=== PATIENT | male | born 1935 | race Caucasian/White ===

== ENCOUNTER 2018-01-19 11:10 | Day surgery (SDC) | payer MEDICARE, BC ==
[~2018-01-19] VITALS: Ht 188 cm; Wt 99.8 kg
[2018-01-19] MEDS ORDERED: normal saline 1000ml 1,000 ML IV SCH (11:45)
[2018-01-19] MEDS ORDERED: albumin (human) 25% 100ml IV 100 ML IV ONE (11:45)
[2018-01-19 11:46] VITALS: BP 120/75
[2018-01-19] MEDS ORDERED: FOLI0.8T7 PO (12:03)
[2018-01-19] MEDS ORDERED: LORA1TAB PO (12:03)
[2018-01-19] MEDS ORDERED: INSU100C10 SQ (12:03)
[2018-01-19] MEDS ORDERED: INSU100V9 SQ (12:03)
[2018-01-19] MEDS ORDERED: PHO667C PO (12:03)
[2018-01-19] MEDS ORDERED: PREG150C PO (12:03)
[2018-01-19] MEDS ORDERED: FLO0.4C PO (12:03)
[2018-01-19] MEDS ORDERED: SIMV20TA5 PO (12:03)
[2018-01-19] MEDS ORDERED: dextrose 50%-water 50ml dispensing syringe IV PRN (12:05)
[2018-01-19] MEDS ORDERED: fentaNYL/PF 50MCG/1 ML 2ML syringe IV PRN (13:00)
[2018-01-19] MEDS ORDERED: midazolam 2 mg/2 ml injection IV PRN (13:00)
[2018-01-19] MEDS ORDERED: LIDOcaine 1%/PF 5ML 10 MG/ML VIAL SQ ONE (13:00)
[2018-01-19] MEDS ORDERED: LIDOcaine 1%/PF 5ML 10 MG/ML VIAL ONE (13:19)
[2018-01-19] MEDS ORDERED: iohexol 300mg/ml 100ml inj. ONE (13:19)
[2018-01-19] MEDS ORDERED: midazolam 2 mg/2 ml injection ONE (13:22)
[2018-01-19] MEDS ORDERED: fentaNYL/PF 50MCG/1 ML 2ML syringe ONE (13:23)
[2018-01-19] MEDS ORDERED: heparin 1,000 UNITS/NS 500ml 500 ML ONE (13:31)
[2018-01-19 13:46] LABS: BASOPHILS # (AUTO) 0.1 X10'3 (0-0.2); EOSINOPHILS # (AUTO) 0.5 X10'3 (0-0.9); EOSINOPHILS % (AUTO) 5.7 % (0-6); HEMATOCRIT 37.4 % (42.0-52.0); HEMOGLOBIN 12.4 g/dl (14.0-17.9); LYMPHOCYTES # (AUTO) 1.8 X10'3 (1.1-4.8); LYMPHOCYTES % (AUTO) 19.5 % (21-51); MEAN CORPUSCULAR HEMOGLOBIN 32.6 PG (27.0-31.0); MEAN CORPUSCULAR HGB CONC 33.1 % (33.0-36.5); MEAN CORPUSCULAR VOLUME 98.3 FL (78-98); MEAN PLATELET VOLUME 9.7 FL (7.4-10.4); MONOCYTES % (AUTO) 10.4 % (2-12); NEUTROPHILS # (AUTO) 5.9 X10'3 (1.8-7.7); NEUTROPHILS % (AUTO) 63.4 % (42-75); PLATELET COUNT 107 X10'3 (140-440); RED BLOOD COUNT 3.81 X10'6 (4.70-6.10); RED CELL DISTRIBUTION WIDTH 17.2 % (11.5-14.5); WHITE BLOOD COUNT 9.3 X10'3 (4.5-11.0)
[2018-01-19 14:37] VITALS: BP 123/57
[2018-01-19 14:45] VITALS: BP 131/62
[2018-01-19 15:00] VITALS: BP 118/61
[2018-01-19 15:15] VITALS: BP 122/67
[2018-01-19 15:30] VITALS: BP 114/68
== END 2018-01-19 15:50 | disposition home or self-care (01) ==
LOC: SSTAY O 11:10
PROVIDERS: ATTEND Radiology Diagnostic Radiology
DX: T82.838A Hemorrhage due to vascular prosthetic devices, implants and grafts, initial encounter (principal); E11.22 Type 2 diabetes mellitus with diabetic chronic kidney disease; I12.0 Hypertensive chronic kidney disease with stage 5 chronic kidney disease or end stage renal disease; N18.6 End stage renal disease; E78.5 Hyperlipidemia, unspecified; Z95.1 Presence of aortocoronary bypass graft; Z87.891 Personal history of nicotine dependence; Z96.641 Presence of right artificial hip joint; Z85.51 Personal history of malignant neoplasm of bladder; Z90.79 Acquired absence of other genital organ(s); Z99.2 Dependence on renal dialysis; Z79.1 Long term (current) use of non-steroidal anti-inflammatories (NSAID); Z79.899 Other long term (current) drug therapy; Z98.890 Other specified postprocedural states; Z86.74 Personal history of sudden cardiac arrest; Y83.2 Surgical operation with anastomosis, bypass or graft as the cause of abnormal reaction of the patient, or of later complication, without mention of misadventure at the time of the procedure; Y92.89 Other specified places as the place of occurrence of the external cause
CPT/HCPCS: 36415; 36901; 82948; 85025; 99152; 99153; C1769; C1894; J1644; J2001; J2250; J3010; J7030; Q9967; A4620